=== PATIENT | male | born 1985 | race Caucasian/White ===

== ENCOUNTER 2018-01-01 18:33 | Emergency (ER) | payer BC ==
[2018-01-01 18:45] VITALS: BP 161/85
--- NOTE | 2018-01-01 19:07 | UC ---
Cardiac HPI - HPI Summary HPI Summary: 32 year old male presents with chest pain and dizziness starting today . Has had intermittent shortness of breath as well. Chest pressure upper left chest can radiate in to the shoulder. Has has some discomfort for a few days. Today at about 0845 AM had abrupt worsening of chest pain, vision changes / loss for 5 -10 min, dizziness, sweating and since then has had some mild epigastric tenderness and left arm heaviness. Pain persistent. Having mild discomfort at this time. - History of Current Complaint Chief Complaint: UCChestPain Stated Complaint: CHEST PAIN,SOB Time Seen by Provider: 01/01/18 18:49 Hx Obtained From: Patient Onset/Duration: Sudden Onset Timing: Constant Initial Severity: Moderate Pain Intensity: 3 - Allergy/Home Medications Allergies/Adverse Reactions: Allergies Allergy/AdvReac Type Severity Reaction Status Date / Time No Known Allergies Allergy Verified 01/01/18 18:45 Home Medications: Home Medications Lisinopril TAB* [Prinivil TAB*] 40 mg PO DAILY 01/01/18 [History Confirmed 01/01] Omeprazole CAP* [Prilosec CAP* 20 MG] 20 mg PO DAILY 01/01/18 [History Confirmed 01/01/18] busPIRone TAB* [Buspar TAB*] 5 mg PO BID 01/01/18 [History Confirmed 01/01/18] PMH/Surg Hx/FS Hx/Imm Hx Previously Healthy: Yes - Surgical History Surgical History: Yes Surgery Procedure, Year, and Place: 2 hernias [facility] 01/2014, 04/2012 at [facility],. appendectomy 01/2012 [facility]. 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 Smoking Status (MU): Never Smoked Tobacco - Immunization History Most Recent Influenza Vaccination: no Review of Systems Constitutional: Chills Eyes: Blurred Vision Cardiovascular: Chest Pain Neurological: Other - dizziness Psychological: Anxious Is Patient Immunocompromised?: No All Other Systems Reviewed And Are Negative: Yes Physical Exam Triage Information Reviewed: Yes Appearance: Well-Appearing, No Pain Distress, Well-Nourished Vital Signs: Initial Vital Signs Temp 97.7 F 01/01/18 18:37 Pulse 110 01/01/18 18:37 Resp 16 01/01/18 18:37 BP 161/85 01/01/18 18:37 Pulse Ox 100 01/01/18 18:37 Vital Signs Reviewed: Yes Eye Exam: Normal ENT Exam: Normal Dental Exam: Normal Neck exam: Normal Neck: Positive: 1 Respiratory Exam: Normal Cardiovascular Exam: Normal Abdominal Exam: Normal Musculoskeletal Exam: Normal Neurological Exam: Normal Psychological Exam: Normal Skin Exam: Normal - Assessment/Plan Course Of Treatment: Go to ED. Declined ambulance. Needs further work up he can not get here . He is agreeable to go to ED. He is aware of risks of not going by ambulance including ND/ . He and his declined ambulance. - Differential Diagnoses - Chest Pain Differential Diagnosis/HQI/PQRI: Acute ND, Angina, Chest Wall, Lower Respiratory Infection, Pulmonary Embolism - Clinical Impression Provider Diagnoses: Chest pain Discharge - Discharge Plan Condition: Guarded Disposition: [facility] Patient Education Materials: Chest Pain (ED) Referrals: Gerri Vaughn MD [Primary Care Provider] - 4 Days Additional Instructions: Please go directly to the Emergency Room . You have declined ambulance. You were given a full dose of aspirin in the urgent care setting.
[2018-01-01] MEDS: Aspirin Low Dose CHEW TAB* 81 MG PO ONE (19:33)
== END 2018-01-01 19:41 | disposition short-term general hospital (02) ==
LOC: UCCORT 18:33
DX: R07.9 Chest pain, unspecified (principal); Z82.49 Family history of ischemic heart disease and other diseases of the circulatory system
CPT/HCPCS: 93005; 99202; A9270-GY; G0463